=== PATIENT | male | born 1975 | race Two or more races ===

== ENCOUNTER 2021-04-21 23:22 | Emergency (ER) | payer MEDICAID ==
[~2021-04-21] VITALS: Ht 167.6 cm; Wt 72.6 kg
--- NOTE | 2021-04-22 00:02 | NUR ---
BIBS FOR L MATHEWS LACERATION WITH BROKEN WINE GLASS,. UPDATED TDAP.AMBULATED WITH STEADY GAIT. BREATHING EVEN AND UNLABORED ALLL V/S STABLE.
[2021-04-22] MEDS ORDERED: LIDOCAINE 2% 20 ML MDV ONE (00:15)
[2021-04-22] MEDS ORDERED: LIDOCAINE 1% INJ 50 ML MDV IJ ONE (00:30)
[2021-04-22] MEDS ORDERED: BACITRACIN ZINC OINT PACKET 1 EA PACKET TP ONE (00:30)
[2021-04-22] MEDS ORDERED: KETOROLAC TROMETHAMINE INJ 30 MG/ML VIAL IM ONE (02:00)
[2021-04-22] MEDS ORDERED: KETOROLAC TROMETHAMINE 15 MG/ML VIAL ONE (02:04)
--- NOTE | 2021-04-22 02:11 | NUR ---
AT BED SIDE FOR LAC CARE
[2021-04-22 02:54] VITALS: BP 127/83
--- NOTE | 2021-04-22 03:02 | NUR ---
Patient discharged to home in stable condition. Written and verbal after care instructions given. Patient verbalizes understanding of instruction.
== END 2021-04-22 03:05 | disposition home or self-care (01) ==
LOC: ER 23:33
DX: S81.812A Laceration without foreign body, left lower leg, initial encounter (principal); W25.XXXA Contact with sharp glass, initial encounter; Y93.89 Activity, other specified; Y92.89 Other specified places as the place of occurrence of the external cause; Y99.8 Other external cause status
CPT/HCPCS: 12004; 96372; 99283; J1885; J3490

== ENCOUNTER 2021-04-30 13:36 | Emergency (ER) | payer MEDICAID ==
[~2021-04-30] VITALS: Ht 167.6 cm; Wt 72.6 kg
[2021-04-30 13:42] VITALS: BP 124/72
== END 2021-04-30 14:50 | disposition home or self-care (01) ==
LOC: ER 13:38
DX: S81.812D Laceration without foreign body, left lower leg, subsequent encounter (principal); X58.XXXD Exposure to other specified factors, subsequent encounter